=== PATIENT | female | born 1970 | race Caucasian/White ===

== ENCOUNTER 2017-03-21 10:39 | Emergency (ER) | payer SELFPAY ==
--- NOTE | 2017-03-21 11:53 | ED Physician Documentation ---
General Adult - HISTORIAN Historian: patient - HPI Stated Complaint: vaginal discharge Chief Complaint: General Adult Onset: days ago (7) Timing: still present Severity: moderate Further Comments: yes (Pt is a 47 yo female with vag discharge for approx 1 week. Pt has had some lower abd pain. Pt tried some OTC tx, but these were not effective.) - ROS CONST: no problems EYES/ENT: none CVS/RESP: none GI/: abdominal pain (lower abd pain), other (vag discharge) MS/SKIN/LYMPH: none - PAST HX Past History: none Allergies/Adverse Reactions: Allergies Allergy/AdvReac Type Severity Reaction Status Date / Time No Known Allergies Allergy Unverified 03/21/17 11:00 Home Medications: Ambulatory Orders Medication Instructions Recorded Metronidazole 500 mg PO BID #14 tablet 03/21/17 - SOCIAL HX Smoking History: other (smoking hx unknown) - FAMILY HX Family History: No - VITAL SIGNS Vital Signs: Vital Signs Temp Pulse Resp BP Pulse Ox 97.6 F 78 14 132/91 99 03/21/17 10:43 03/21/17 10:43 03/21/17 10:43 03/21/17 10:43 03/21/17 10:43 - REVIEWED ASSESSMENTS Nursing Assessment Reviewed: Yes Vitals Reviewed: Yes Progress - Progress Progress: Wet prep: clue cells present; no yeast or trichomonas. Rx Metronidazole 500 mg. Take one every 12 hrs for 7 days. ED Results Lab/Radiology - Orders Orders: ED Orders Category Date Time Status GC [CHLAMYDIA & GONORRHOEAE] Stat Lab 03/21/17 11:50 Received UA [URINALYSIS] Routine Lab 03/21/17 11:50 Received General Adult Physical Exam - PHYSICAL EXAM GENERAL APPEARANCE: no distress EENT: pharynx normal NECK: normal inspection, supple RESPIRATORY: no resp distress, chest non-tender, breath sounds normal CVS: reg rate & rhythm, heart sounds normal ABDOMEN: soft, no organomegaly, normal bowel sounds, tenderness (lower abd, mild -mod), other (Vag exam: white discharge, no cerv motion tenderness) BACK: normal inspection, no CVA tenderness SKIN: warm/dry, normal color EXTREMITIES: non-tender, normal range of motion NEURO: oriented X3, motor nml, sensation nml Discharge Clincal Impression: BV (bacterial vaginosis) Prescriptions: Metronidazole 500 mg PO BID #14 tablet Referrals: Primary Doctor,No [Primary Care Provider] - Condition: Good Disposition: 01 HOME, SELF-CARE Decision to Admit: NO Decision Time: 12:32
[2017-03-21 11:56] LABS: APPEARANCE,URINE Clear (CLEAR); COLOR,URINE Yellow (YELLOW); OCCULT BLOOD,URINE Negative (NEGATIVE); PH URINE 5.5 (5.0 - 8.0); UROBILINOGEN URINE 0.2 Eu (0.2-1.0)
[2017-03-21 12:41] VITALS: BP 130/86
== END 2017-03-21 12:39 | disposition home or self-care (01) ==
LOC: ED 10:39
DX: N76.0 Acute vaginitis (principal)
CPT/HCPCS: 81002; 87491; 87591; 99282; 99283